=== PATIENT | male | born 1950 | race Caucasian/White ===

== ENCOUNTER 2024-02-22 17:30 | Emergency (ER) | payer MEDICARE, BC, SELFPAY ==
[2024-02-22 17:39] VITALS: BP 149/96; PULSE 71; RESP 20; TEMP 36.3; O2SAT 98
--- NOTE | 2024-02-22 17:45 | ED.GENADUL_ITS ---
Discharge Plan Disposition Patient Disposition: Home Condition: Stable Discharge Details Clinical Impression: Contusion of rib on right side Primary Care Provider: Unknown,Unknown ED Provider: Chan Ward Discharge Instructions Instructions: Bruised Rib Additional Instructions: You were seen in the emergency department for the likely bruised rib on your right side, there is no fracture seen, no popped lung or pneumothorax. Please use therapeutic dosing of Tylenol (acetamenophen) & Advil (ibuprofen) in an alternating fashion as follows: Take 1000mg of Tylenol every 6 hours without missing doses- that is 4 times per day. Assisted in between the Tylenol dosings, take 400-600mg of Advil also on a 6 hour schedule, that is also 4 times per day. The daily maximum dosing of Tylenol is 4000mg, and the daily maximum dosing of Advil is 2400mg. This is safe to do for weeks. Please note that some common cold medications & prescription pain medications may contain acetamenophen and you need to read OTC drug labels and factor that in to maximum daily dosings. You may apply heat and ice to the area intermittently as well as topical Voltaren gel for anti-inflammatory effect, it may be more comfortable to sleep with a pillow under her rib cage for comfort, please return to the emergency department for worsening shortness of breath, chest pain HPI General Date/Time Provider Initiated Documentation: 02/22/24 17:44 . HPI Narrative: 73 year-old male presents to ED today by POV/ambulating with a chief complaint of slip & fall while bird hunting today, landing on a log on his R axilla/posterior ribs with onset just prior to arrival. Quality described as sharp pain to the right posterior axillary ribs without significant swelling or bruising, endorses pain with deep inspiration, no radiation to cough, hemoptysis, inability to take a deep breath, deformity of chest wall, ecchymosis, abdominal pain, central chest pain. Severity is described as severe. Palliating factors include nothing specific attempted. Provoking factors include nothing specific. Patient not anticoagulated. Related Data Allergies Allergy/AdvReac Type Severity Reaction Status Date / Time Penicillins Allergy Intermediate rash Verified 02/22/24 17:44 General Stated Complaint: Fall/Non TraumaCriteria ANDREA: 3 Review of Systems All systems reviewed & are unremarkable except as noted in HPI and below Exam Narrative Exam Narrative: GENERAL APPEARANCE: Well-nourished, non-toxic, awake and alert, atraumatic, no acute distress. SKIN: Warm, pink, dry, intact, without rashes/lesions/ulcerations. HEAD: Normocephalic, atraumatic, normal hair distribution for gender/age. EYES: Normal conjunctiva, no exudates on lids/lashes. ENT: Nares patent, no circumoral cyanosis, no facial swelling NECK: Supple, trachea midline, painless cervical ROM. LUNGS/CHEST: Lungs CTA bilaterally- no diminished or absent lung sounds, non- labored respirations, normal A/P diameter, symmetrical expansion, no chest wall deformity, no flail segment, no crepitus, no ecchymosis to right axillary ribs, diffuse tenderness to the axillary and right posterior rib HEART (CV/PV): Regular rate and rhythm without murmur, no peripheral edema, no JVD. ABDOMEN: Soft, non-distended, no guarding, diffuse abdominal tenderness without peritoneal signs. MSK: Normal ROM, no swelling/deformity to bilateral UEs or LEs, moving all extremities without weakness, no cyanosis, spine midline without tenderness, normal curvature. NEURO: Mental Status AAOx4 - alert to person, place, time, events No facial droop, no forehead involvement. Motor: No focal weakness - strength 5/5 in bilateral UEs and LEs, proximal and distal, symmetric. Sensory: sensation intact to light touch globally. Gait normal: patient ambulated without ataxia into ED room. PSYCH: euthymic, cooperative, pleasant, appropriate speech Course Vital Signs Vital signs: Vital Signs Temperature 36.3 C L 02/22/24 17:39 Pulse 71 02/22/24 17:39 Respiratory Rate 20 02/22/24 17:39 Blood Pressure 149/96 H 02/22/24 17:39 Pulse Oximetry 98 02/22/24 17:39 Temperature 36.3 C L 02/22/24 17:39 Temperature Source Temporal Artery Scan 02/22/24 17:39 Pulse 71 02/22/24 17:39 Respiratory Rate 20 02/22/24 17:39 Blood Pressure 149/96 H 02/22/24 17:39 Pulse Oximetry 98 02/22/24 17:39 End Tidal Co2 7 02/22/24 17:39 Medical Decision Making This dictation utilizes [id number] dictation software and may contain unedited grammatical errors. 73 year-old male presents to ED today by POV/ambulating with a chief complaint of slip & fall while bird hunting today, landing on a log on his R axilla/posterior ribs with onset just prior to arrival. Quality described as sharp pain to the right posterior axillary ribs without significant swelling or bruising, endorses pain with deep inspiration, no radiation to cough, hemoptysis, inability to take a deep breath, deformity of chest wall, ecchymosis, abdominal pain, central chest pain. Severity is described as severe. Palliating factors include nothing specific attempted. Provoking factors include nothing specific. Patients' medical history: Noncontributory. Family and social history: Noncontributory, exercises regularly. Pertinent exam findings / vital signs include lungs CTA diffusely, no diminished or absent lung sounds in the area of pain, no flail segment or chest crepitus, no significant ecchymosis, does have tenderness in the right axillary to mid posterior ribs. Differential / pathologies of concern include rib fracture, contusion, pulmonary contusion, pneumothorax. Diagnostic studies of: -CT chest without contrast, shows a possible minor pulmonary contusion without overt rib fracture. Interventions of: -None. ED Course/Assessment/Plan: 73-year-old male seen for fall where he hit a log with his right axillary ribs and is having sharp pain with deep inspiration, has no chest wall abnormality, no rib fracture seen on chest x-ray, no pneumothorax I do suspect he has bruised ribs and counseled him on [id number] analgesics and bracing the area with a large pillow and strict return criteria for developing cough or fever or worsening despite treatment with chest pain and profound shortness of breath. Findings not consistent with pneumothorax, fractured ribs, trauma criteria. Disposition of contusion of rib on right side. Patient verbalized understanding of the plan and return to ED criteria and engaged in shared decision making. Medical Records Medical records reviewed: Yes I reviewed the patient's medical records. Imaging Data Radiologic Study: Attestation: I personally reviewed and interpreted this imaging study as follows: Imaging: CT Scan Radiologist's impression: EXAM: CT CHEST WO CLINICAL HISTORY: R rib injury, SOB. TECHNIQUE: Multi planar reconstructions were performed. CONTRAST MATERIAL: None COMPARISON: No exams were available for comparison FINDINGS: CHEST: LUNGS: No confluent infiltrates nor lung contusion nor pleural effusion or pneumothorax. There is some scarring or linear atelectasis in the right lung base, specifically within the posterior basal segment of the right lower lobe. There is no associated pleural effusion. No overlying rib fracture. No significant focal findings in the trachea and mainstem bronchi. MEDIASTINUM: No evidence of sternal fracture nor mediastinal hematoma. No obvious hilar nor mediastinal adenopathy. Partially visualized thyroid appears unremarkable. CARDIAC: Heart size is normal. There is no pericardial effusion.Caliber of the thoracic aorta is within normal limits. VISUALIZED UPPER ABDOMEN:Cholelithiasis noted. No obvious evidence of acute cholecystitis. There are few tiny densities in the right hepatic lobe Jb too small to characterize this patient a noninfused study but have benign appearance OSSEOUS: No fractures evident.. No rib fractures. No sternal fractures. No vertebral fractures.. IMPRESSION: 1. Mild benign-appearing increased subpleural markings in the posterior basal segment of the right lower lobe please scarring or atelectasis. No lung contusion, pleural effusion, pneumothorax, nor obvious rib fractures. 2. Cholelithiasis incidentally noted without evidence of acute cholecystitis Quality:[facility] Health Related Social Needs: No Data to Display PFSH All Active Problems (Updated 02/22/24 @ 18:57 by DEONNA Zayas) Contusion of rib on right side (Acute) Social History Smoking/Tobacco Use Status: Never Smoking risk assessment performed?: Yes Alcohol Intake: never Substance use type: does not use
--- NOTE | 2024-02-22 18:01 | DI.CT_ITS ---
Exam(s) CT CHEST WO EXAM: CT CHEST WO CLINICAL HISTORY: R rib injury, SOB. TECHNIQUE: Multi planar reconstructions were performed. CONTRAST MATERIAL: None COMPARISON: No exams were available for comparison FINDINGS: CHEST: LUNGS: No confluent infiltrates nor lung contusion nor pleural effusion or pneumothorax. There is so me scarring or linear atelectasis in the right lung base, specifically within the posterior basal seg ment of the right lower lobe. There is no associated pleural effusion. No overlying rib fracture. No significant focal findings in the trachea and mainstem bronchi. MEDIASTINUM: No evidence of sternal fracture nor mediastinal hematoma. No obvious hilar nor mediasti nal adenopathy. Partially visualized thyroid appears unremarkable. CARDIAC: Heart size is normal. There is no pericardial effusion.Caliber of the thoracic aorta is wit hin normal limits. VISUALIZED UPPER ABDOMEN:Cholelithiasis noted. No obvious evidence of acute cholecystitis. There ar e few tiny densities in the right hepatic lobe Jb too small to characterize this patient a noninfu sed study but have benign appearance OSSEOUS: No fractures evident.. No rib fractures. No sternal fractures. No vertebral fractures.. IMPRESSION: 1. Mild benign-appearing increased subpleural markings in the posterior basal segment of the right l ower lobe please scarring or atelectasis. No lung contusion, pleural effusion, pneumothorax, nor obv ious rib fractures. 2. Cholelithiasis incidentally noted without evidence of acute cholecystitis Report called to ER provider 02/22/2024 at 6:35 RADIATION DOSE DELIVERED: 257.81mGy.cm Total DLP DATA REPOSITORY: All CT scans at this facility are submitted to the National Radiology Data Registry (NRDR) Dose Index Registry (DIR) with the [employer] ([employer]). RADIATION OPTIMIZATION: All CT scans at this facility use at least one of these dose optimization te chniques: automated exposure control; mA and/or kV adjustment per patient size (includes targeted exa ms where dose is matched to clinical indication); or iterative reconstruction.
[2024-02-22 18:25] VITALS: BP 148/78; PULSE 74; RESP 18; O2SAT 18
[2024-02-22 19:12] VITALS: BP 153/84; PULSE 78; RESP 18; O2SAT 99
== END 2024-02-22 19:12 | disposition home or self-care (01) ==
PROVIDERS: Emergency Provider Physician Assistant
DX: S20.211A Contusion of right front wall of thorax, initial encounter (principal); W18.09XA Striking against other object with subsequent fall, initial encounter
CPT/HCPCS: 71250; 99284